=== PATIENT | male | born 1980 | race Caucasian/White ===

== ENCOUNTER 2025-05-17 14:58 | Emergency (ER) | payer OTHER, SELFPAY ==
[2025-05-17 15:05] VITALS: BP 146/110
[2025-05-17 15:36] LABS: Hematocrit 43.7 % (39.0-52.0); Hemoglobin 15.4 g/dL (13.0-18.0); Mean Corp Hgb Conc. 35.2 g/dL (33.0-37.0); Mean Corpuscular Volume 83.9 fL (80.0-94.0); Nucleated Red Blood Cells % 0 % (-); Platelet Count 254 10^3/uL (130-400); Red Cell Dist. Width 11.6 % (11.5-14.5); Urine Character Clear (Clear)
[2025-05-17 15:46] LABS: Urine Red Blood Cell 0-2 /HPF (0-2); Urine Squamous Cell 0-2 /LPF (Few); Urine White Cell 0-2 /HPF (0-5)
[2025-05-17 15:57] LABS: ALT (SGPT) 67 U/L (0-50); AST (SGOT) 31 U/L (17-59); Albumin 4.6 g/dl (3.5-5.0); Alkaline Phosphatase 40 U/L (38-126); Blood Urea Nitrogen 16 mg/dl (9-20); Calcium 9.6 mg/dl (8.4-10.2); Carbon Dioxide 27 mmol/L (22-30); Chloride 99 mmol/L (98-107); Glucose 106 mg/dl (70-99); Potassium 4.5 mmol/L (3.5-5.1); Sodium 137 mmol/L (135-145); Total Protein 7.8 g/dl (6.3-8.2); eGFR > 60.00
--- NOTE | 2025-05-17 17:27 | ED.GENMED ---
History of Present Illness
General
Chief Complaint: Abdominal Symptoms
Source: patient
Time Seen by Provider: 05/17/25 17:13
History of Present Illness
History of Present Illness:
This patient is a 44-year-old male who states that for the past week or so he has had headache, body aches, and low-grade fever 'on and off'. He denies photophobia, neck stiffness, nausea, vomiting, rash. However, he has noted mild burning with
urination, not associated with hematuria, and now most recently difficulty fully emptying his bladder. He denies flank pain, chest pain, shortness of breath, cough, sore throat, rhinorrhea. He notes he has been constipated for at least the last 3
days. He went to an urgent care on Monday and was diagnosed with UTI and prescribed doxycycline. He did not feel any better so yesterday he went back was prescribed Augmentin. He presents today because he has continued symptoms. When asked
about abdominal comfort he says he has 'a little bit' in the suprapubic area. This is in contrast to the triage note which reports periumbilical pain. The patient denies periumbilical pain.
Past History
Past History
ED Past Medical History: CAD, Hypercholesterolemia and Other (Deaf); Negative Asthma, HTN, IDDM or NIDDM
ED Past Surgical History: Cardiac
Social History
Tobacco: Non-smoker (Chews tobacco)
Alcohol: Occasional
Drug: None
Personal: Single
Living: alone
Employment: Employed (event services manager)
Family History
Family History: Negative CAD
Phy Exam
Physical Exam
Physical Exam:
GENERAL: Alert , in no apparent distress
EYE: pupils equal and reactive
NECK: Supple, no significant adenopathy.
ENT: o/p clr, mmm.
CARDIAC: Regular rate and rhythm .
LUNGS: Clear breath sounds bilaterally, no acute respiratory distress, no wheezes/rales/rhonchi
ABDOMEN: Soft, mild lower abdominal tenderness, no r/g, no cvat
NEUROLOGICAL: Alert and oriented, no focal neuro deficits
SKIN: Warm and dry, skin intact.
MUSCULOSKELETAL: No edema, well perfused.
PSYCH: Normal and appropriate interaction.
Sepsis
Sepsis Screening
Sepsis Assessment: Sepsis Ruled Out
Sepsis Screen
Sepsis Screen: Sepsis Ruled Out
Date: 05/20/25
Time: 14:10
Course
Orders/Labs/Results
Orders:
Orders
05/17/25 15:22
Complete Blood Count/With Diff Urgent
Comprehensive Metabolic Panel Urgent
Urinalysis Reflex To Culture Urgent
Date Specimen was Collected: 05/17/25
Time Specimen was Collected: 15:14
Urine Microscopic Reflex Cult Urgent
05/17/25 17:29
CT Abd/pelvis W Iv Cont Urgent
Comment:
Reason For Exam: abd pain, urinary retention
Wilhelm Placement- Treatment ONCE
Reason for insertion: Acute Retention
05/17/25 17:47
Acetaminophen [Tylenol] 1,000 mg .ROUTE .STK-MED ONE
Acetaminophen [Tylenol] 1,000 mg PO NOW STA
05/17/25 18:32
Influenza A+B Rapid Molecular Urgent
RICHIE Source: Nasal Swab
Specimen Description:
05/17/25 19:51
Tamsulosin [Flomax] 0.4 mg PO NOW STA
Abnormal Lab Results
05/17/25
15:22
Abs Immat Gran (auto) 0.1 H 10^3/uL
(0-0.05)
Immature Gran % 0.7 H %
(0-0.5)
Glucose 106 H mg/dl
(70-99)
ALT 67 H U/L
(0-50)
Urine Bacteria (Reflex) Few A
(Negative)
Urine Albumin (Reflex) 1+ A
(Neg - Trace)
05/17/25 15:22
05/17/25 15:22
Vital Signs
Initial and Last Documented VS:
Initial Vital Signs
Temp Pulse Resp BP Pulse Ox
98.6 F 87 20 146/110 99
05/17/25 15:05 05/17/25 15:05 05/17/25 15:05 05/17/25 15:05 05/17/25 15:05
Last Documented Vital Signs
Temp Pulse Resp BP Pulse Ox
98.6 F 73 16 137/98 99
05/17/25 15:05 05/17/25 20:04 05/17/25 20:04 05/17/25 20:04 05/17/25 20:04
*Pulse Oximetry
SaO2: 100
Oxygen Mode of Delivery: Room air
Patient hypoxic: no
*Critical Care Note
Total Time (30-74mins, 75-104mins- exclusive of procedures): Not Applicable
Update Note
Update Note:
Patient presents to the Emergency Department with __difficulty fully urinating, dysuria, fever and chills, abdominal discomfort, etc.
Number and Complexity of Problems Addressed at the Encounter
� Chronic conditions affecting care:
� Acute Exacerbation and/or Progression of Chronic Illness:
� Differential Diagnosis includes: But not limited to UTI, influenza, viral illness, pyelonephritis, appendicitis, constipation, etc. etc. etc.
Amount and/or Complexity of Data to be Reviewed and Analyzed
� I performed an independent evaluation of and my interpretation is:
EKG:
CT:No CT evidence for an acute inflammatory process in the abdomen or pelvis.
Collapsed urinary bladder with a Wilhelm catheter in place.
Xrays:
Laboratory Studies: Generally unremarkable, UA not suggestive of UTI
Other:
� Review of other/old records reveals:
� Clinical information was obtained by an independent historian:
� Prescriptions/Medications Considered but not given:
� Further testing considered but not performed:
Risk of Complications and/or Morbidity or Mortality of Patient Management
� Social determinants of health affecting care:
� Discussion with other providers (PCP, Hospitalists, Consultants, etc):
� Escalation of care including admission/observation vs risk of discharge considered: On bladder scan patient noted to have greater than 500 cc of urine in his bladder. As a result, I recommend a Wilhelm catheter pending further
testing.
7:53 PM patient resting comfortably, watching football game, no acute distress. Wilhelm catheter drained normally without blood. Work appears generally unremarkable. Suspect patient had a viral illness contributing to his on and off low-grade
fever, fatigue, and headache. He is not exhibit signs or symptoms to suggest acute intracranial process/meningitis, no meningismus, [place] no easily, no photophobia, etc. Discussed with patient and brother importance of follow-up and reasons
return to the ER. We will start him on Flomax.
ED Attending Note
-
Portions of this chart may have been created with voice recognition software.� Occasional wrong word or��sound alike� substitutions may have occurred due to the inherent limitations of voice recognition software.
Discharge Plan
Departure
Patient Disposition: Home (Routine Discharge)
Date of Disposition: 05/17/25
Time of Disposition: 19:51
Patient with high blood pressure during this ER visit?: Yes
Condition: Good
Discharge Problem:
Acute urinary retention
Instructions: Headaches in adults, Urinary retention (DC), How to care for a urinary catheter, BLOOD PRESSURE
Prescriptions:
New
tamsulosin 0.4 mg capsule
0.4 mg PO DAILY Qty: 30 0RF
No Action
clopidogrel 75 MG tablet
75 mg PO DAILY Qty: 30 10RF
aspirin 81 MG tablet,chewable
81 mg PO DAILY 0RF
rosuvastatin 20 MG tablet
20 mg PO QPM Qty: 30 10RF
metoprolol tartrate 25 MG tablet
25 mg PO BID Qty: 60 10RF
lisinopril [Zestril] 2.5 MG tablet
2.5 mg PO DAILY Qty: 30 10RF
Referrals:
Bronson Jackson MD [Active, Urology] - Next open appointment
UNKNOWN - PT DOES,NOT KNOW [Family Provider]
Activity Restrictions/Additional Instructions:
IF YOU DEVELOP ABDOMINAL PAIN, FLANK PAIN, CHEST PAIN, SHORTNESS OF BREATH, YOUR CATHETER DOES NOT DRAIN, BLEEDING, GET WORSE, DO NOT GET BETTER, OR OTHER WORRISOME SIGNS, PLEASE RETURN TO THE ER IMMEDIATELY!
Interventions
Interventions:
*General Assessment Last Done: 05/17/25 16:56
*Neglect/Abuse Screening Last Done: 05/17/25 16:56
*ED COVID-19 Vaccine History Last Done: 05/17/25 16:56
*ED Influenza Vaccine History Last Done: 05/17/25 16:56
[facility] Fall Risk Assessment Tool Last Done: 05/17/25 16:56
*Risk Screen - Suicide (C-SSRS) Last Done: 05/17/25 16:56
*Nursing Disposition Last Done: 05/17/25 20:22
YI-Pzdffz-Vzgxridhjy Assessment Last Done: 05/17/25 16:56
Discharge Date and Time
Discharge Date/Time: 05/17/25 20:22
Print Language: GREENLANDIC
[2025-05-17 17:40] VITALS: BP 146/90
[2025-05-17] MEDS: TYLENOL 1000 MG PO (17:48)
[2025-05-17] MEDS: FLOMAX 0.4 MG PO (20:01)
[2025-05-17 20:04] VITALS: BP 137/98
--- NOTE | 2025-05-17 20:19 | EDRN ---
Leg bag applied and instructions provided. Pt declined overnight 2000ml bag.
== END 2025-05-17 20:22 | disposition home or self-care (01) ==
LOC: EMR 14:58
PROVIDERS: Physician Assistant; EMERGENCY PHYSICIAN Emergency Medicine
DX: R33.9 Retention of urine, unspecified (principal); E78.00 Pure hypercholesterolemia, unspecified; I25.10 Atherosclerotic heart disease of native coronary artery without angina pectoris
CPT/HCPCS: 51702; 99284; 74177; 80053; 81003; 81015; 85025; 87502; Q9967